=== PATIENT | male | born 1985 | race Caucasian/White ===

== ENCOUNTER 2019-03-30 15:41 | Observation (INO) | payer OTHER, SELFPAY ==
[2019-03-30 15:42] VITALS: BP 169/100; PULSE 73; RESP 19; RESP 20; TEMP 36.7; O2SAT 95; BMI 36.3
--- NOTE | 2019-03-30 15:53 | RAD_ITS ---
STUDY: X-RAY CHEST REASON FOR EXAM: Male, 34 years old. Chest pain TECHNIQUE: Single AP portable view of the chest. COMPARISON: None. FINDINGS: The lungs are clear and expanded. There is no demonstrated pleural abnormality. Normal size heart. Normal mediastinum and oleg. Normal visualized pulmonary arteries. Normal visualized aortic arch and descending thoracic aorta. Normal visualized thoracic spine. Normal visualized ribs, clavicles, and shoulders. There is no demonstrated abnormality of the visualized soft tissue structures of the upper abdomen. RAD/Chest 1 View (Portable) IMPRESSION: Normal x-ray examination of the chest. Electronically Signed: Carlos Becker DO at 16:50 EDT Tel , Service support ,
--- NOTE | 2019-03-30 15:53 | EKG12_ITS ---
Test Reason : CP ADMIT Blood Pressure : / mmHG Vent. Rate : 064 BPM Atrial Rate : 064 BPM P-R Int : 160 ms QRS Dur : 098 ms QT Int : 398 ms P-R-T Axes : 029 -12 011 degrees QTc Int : 410 ms Normal sinus rhythm with sinus arrhythmia Poor R wave progression Confirmed by PRETTY IBARRA, ([id number]), sports editor JOCELYNE KRISHNA ([id number]) on 04/04/2019 7:01:36 AM Referred By: Mar Matthews Confirmed By:PAUL OLSEN MD
[2019-03-30] MEDS: Aspirin 81 MG TAB.CHEW 324 MG PO (15:59)
[2019-03-30] MEDS: Nitroglycerin SL (ED/IMG/CATH) 0.4 MG TABLET SUBLINGUAL ×3 (16:00→16:13)
[2019-03-30 16:04] LABS: Absolute Lymphocyte Count 2.44 X10^3/ul (0.83-4.51); Absolute Neutrophil Count 3.7 X10^3/uL (2.0-7.7); Basophil# 0.08 X10^3/uL; Basophil% 1.1 % (0-1); Eosinophil# 0.21 X10^3/uL; Hematocrit 44.7 % (40-54); Hemoglobin 16.3 g/dl (13.0-16.5); Lymphocyte # 2.44 X10^3/ul (4.0); Lymphocyte % 34.8 % (19-41); Mean Corp Hgb Conc 36.5 g/gl (32-36); Mean Corpuscular Hgb 32.2 pg (27.0-32.0); Mean Corpuscular Volume 88.3 fL (80-94); Mean Platelet Vol. 10.9 fl (6.2-12.0); Monocyte# 0.55 X10^3/uL; Monocyte% 7.8 % (0-10); Neutrophil # 3.73 X10^3/uL (2.7-7.7); Neutrophil % 53.2 % (47-70); Platelet Count 215 K/mm3 (150-450); RBC Distribution Width CV 12.6 % (11.6-14.6); RBC Distribution Width SD 40.3 fl (35.1-43.9); Red Blood Count 5.06 M/mm3 (4.6-6.2)
[2019-03-30 16:09] LABS: POSITIVE COUNT NO; POSITIVE DIFFERENTIAL NO; POSITIVE MORPHOLOGY NO
--- NOTE | 2019-03-30 16:11 | ED.VISSUMM ---
- ER Visit Summary Date of Service: 03/30/19 Chief Complaint: Chest pain History of Present Illness: The patient is a 34 M presenting with chest pain. Patient states this started yesterday. He states the pain has been intermittent. He feels a midsternal pressure that radiates to his left arm. He has associated shortness of breath. He denies nausea, vomiting, diaphoresis, lightheadedness. He has a history of hypertension. He is no longer taking blood pressure medications. He has a family history of early cardiac disease with his mother having an DE in her 40s. Denies PE/DVT risk factors. He is not a smoker. Physical Examination: Vitals are stable. Blood pressure 169/100. Patient is afebrile. Alert no acute distress. HEENT exam is unremarkable. Neck is supple. Lungs are clear and equal bilaterally. Heart is regular rate and rhythm. Abdomen is soft nontender nondistended. Extremities are unremarkable. Skin is warm and dry. No focal neurologic deficit. Remainder of exam is unremarkable. Emergency Department Course and Treatment: Patient was given aspirin on arrival. EKG is sinus rate of 69 with no acute ischemic changes. CBC, chemistries unremarkable other than glucose 228. Troponin is negative. Chest x-ray shows no acute process. He was given nitro sublingual. He has continued pain was given morphine. He has improvement of his pain but continues to have intermittent chest pressure. Discussed with the hospitalist for observation. Disposition: Observation Impression: Chest pain This note was generated with [employer] dictation software. It may contain incorrect words, spelling, and punctuation that were not noted in review of the chart prior to signing ED Disposition - Plan for ED Patient: Referrals: Jay De La Rosa [Primary Care Provider] -
[2019-03-30 16:17] LABS: Anion Gap 8 (5-15); BUN 12 mg/dL (7-18); BUN/Creat Ratio 11.3 RATIO (10-20); Calcium,Total 8.6 mg/dL (8.5-10.1); Chloride 102 mmol/L (98-107); Creatinine, Serum 1.06 mg/dL (0.70-1.30); EST Glomerular Filtration Rate 84 mL/min (>60); Est Glom Filt Rate - Afr Amer 102 mL/min (>60); Estimated Creatinine Clearance 99.48 ml/min; Glucose 228 mg/dL (74-106); Sodium Level 136 mmol/L (136-145)
[2019-03-30] MEDS: Ondansetron 4 MG/2 ML Vial IV (16:33)
[2019-03-30] MEDS: Morphine 4 MG/ML Syringe IV (16:33)
[2019-03-30 17:13] VITALS: BP 131/73; PULSE 75; RESP 20; O2SAT 95
--- NOTE | 2019-03-30 17:18 | PCM.HP.STD ---
Problem List (1) Chest pain Status: Acute Qualifiers: Chest pain type: unspecified Qualified Code(s): R07.9 - Chest pain, unspecified History of Present Illness Date of Admission: 03/30/19 Chief Complaint: Chest pain - 2 days The patient is a 34 year old M with no significant past medical history who comes in with chest pain ongoing for 2 days. Patient describes chest pain as substernal, squeezing, radiates to the shoulder and to the left hand, lasts for a few minutes and goes away. Been coming and going periodically. Nothing makes it worse, nothing makes it better. Denies any nausea or vomiting or diaphoresis with it. Denies any fever or chills. There is a family history of heart disease with an UT and his mother in his 50s. Denies any smoking or illicit drug use. Vitals in the ED showed temperature of 98.0 F, heart rate 75, blood pressure 131/73, respiratory rate is 20, SPO2 is 95% on room air. Admitting blood work is unremarkable except for elevated glucose of 228. Chest x-ray was unremarkable. Past Medical History Allergies No Known Allergies Allergy (Verified 03/30/19 15:42) Home Medications: Ambulatory Orders Medication Instructions Recorded NK 03/30/19 Surgical History: - - Status post history of leg surgery for fracture as an infant Psychiatric History: No pertinent psych hx Lives: Spouse/ Significant Other Smoking Status: Never smoker Tobacco Use: Non-smoker Alcohol: None Drugs: None - *Family History Maternal History Items: Heart Disease - UT in 50s Paternal History Items: No pertinent history Review of Systems Constitutional: Denies: Anorexia, Chills, Fever, Weakness, Weight Change Eyes: Denies: Blurred vision, Cataracts, Conjunctivae Inflammation, Pain, Redness, Vision Change HEENT: Denies: Difficulty Hearing, Difficulty Swallowing, Head Aches, Hearing Changes, Sinus Congestion, Sinus Drainage, Sore Throat Cardiovascular: Reports: Chest Pain, Chest Pressure. Denies: Light Headedness, Orthopnea, Palpitations, Paroxysmal Noc. Dyspnea Respiratory: Denies: Cough, Hemoptysis, Shortness of breath at rest, Shortness of breath upon exertion, Sputum production Gastrointestinal: Denies: Abdominal Pain, Constipation, Diarrhea, Nausea, Vomiting Genitourinary: Denies: Dysuria, Frequency, Incontinence Musculoskeletal: Denies: Joint Pain, Joint stiffness, Joint swelling, Joint Tenderness Skin: Denies: Rash, Wounds Neurological: Denies: Numbness, Tingling, Focal weakness Psychiatric: Denies: Anxiety, Depression, Homicidal Ideations, Suicidal Ideations Endocrine: Denies: Change in Body Habitus Hematologic/ Lymphatic: Denies: Easy Bruising, Easy Bleeding VTE Information - Inpt Only VTE Present on Admission: No VTE Pharm Prophylaxis ordered?: Yes Patient Problems: Active and Suspected Problems Chest pain (Acute) - Physical Exam General: Alert, Oriented x3, Cooperative, No apparent distress, - - obese HEENT: Atraumatic, PERRLA, EOMI, Normocephalic Oral: Moist Mucosa Neck: Supple, No JVD, Negative Carotid Bruits Lungs: Clear to auscultation, Normal air movement Cardiovascular: Regular rate, Regular Rhythm, Normal S1, Normal S2, No murmurs Abdomen: Bowel Sounds Present, Soft, Non Tender Extremities: No edema Skin: No rashes Musculoskeletal: No Tenderness to Palpation of Joints or Extremities Neurological: Cranial nerves II-XII grossly intact Psych/Mental Status: Normal Affect, Appropriate Vital Signs Temp Pulse Resp BP Pulse Ox 98.0 F 75 20 H 131/73 H 95 03/30/19 15:42 03/30/19 17:13 03/30/19 17:13 03/30/19 17:13 03/30/19 17:13 Oxygen Delivery Method Room Air Weight: 115 kg Body Mass Index (BMI) 36.3 Laboratory Tests Past 24 Hrs 03/30/19 03/30/19 15:50 15:50 WBC 7.0 RBC 5.06 Hgb 16.3 Hct 44.7 MCV 88.3 MCH 32.2 H MCHC 36.5 H RDW 12.6 RDW Differential 40.3 Plt Count 215 MPV 10.9 Immature Gran % (Auto) 0.100 Neut % (Auto) 53.2 Lymph % (Auto) 34.8 [place] % (Auto) 7.8 Eos % (Auto) 3.0 Baso % (Auto) 1.1 H Absolute Neuts (auto) 3.7 Absolute Lymphs (auto) 2.44 Total Counted Not Reportable Sodium 136 Potassium 4.0 Chloride 102 Carbon Dioxide 26.0 Anion Gap 8 BUN 12 Creatinine 1.06 Estim Creat Clear Calc 99.48 Est GFR (MDRD) Af Amer 102 Est GFR (MDRD) Non-Af 84 BUN/Creatinine Ratio 11.3 Glucose 228 H Calcium 8.6 Troponin I < 0.015 Assessment/Plan All Active Problems Chest pain (Acute) 34 year old M with no significant past medical history who comes in with chest pain ongoing for 2 days. Patient describes chest pain as substernal, squeezing, radiates to the shoulder and to the left hand, lasts for a few minutes and goes away. 1. Chest pain, atypical, in a patient with no personal cardiac disease, HEART score of 2, positive FHx of heart disease in mother at 50yrs Plan: Admit to PCU, monitor on telemetry, trend troponins, exercise stress test in am, aspirin 81mg po daily, nitro prn 2. Elevated Blood sugar on BMP, no h/o DM, will check HgbA1c, lipid profile 3. DVT PPx- early am Code Visit OBSV E&M: [id number] Initial observation care L3
[2019-03-30 18:02] VITALS: BMI 35.2
[2019-03-30 18:05] VITALS: BP 145/77; PULSE 78; RESP 16; TEMP 37; O2SAT 93
[2019-03-30 18:14] VITALS: PULSE 77
--- NOTE | 2019-03-30 18:46 | EKG12_ITS ---
Test Reason : CP Blood Pressure : / mmHG Vent. Rate : 069 BPM Atrial Rate : 069 BPM P-R Int : 154 ms QRS Dur : 094 ms QT Int : 390 ms P-R-T Axes : 026 -16 013 degrees QTc Int : 417 ms Normal sinus rhythm Normal ECG Confirmed by GUNNAR HARRINGTON MD ([id number]), editorial specialist JOCELYNE KRISHNA ([id number]) on 03/31/2019 11:49:29 AM Referred By: Mar Matthews Confirmed By:GUNNAR HARRINGTON MD
[2019-03-30 19:02] VITALS: PULSE 76
[2019-03-30 21:11] LABS: Hemoglobin A1c 8.2 % (4.2-6.3)
[2019-03-30 23:01] VITALS: PULSE 71
[2019-03-31] VITALS (8 sets, daily range): BP systolic 128–145; BP diastolic 73–93; PULSE 58–87; RESP 16; TEMP 36.1–36.8; O2SAT 93–95
[2019-03-31] MEDS: Aspirin 81 MG TAB.CHEW PO (05:41)
--- NOTE | 2019-03-31 05:55 | EKG12_ITS ---
Test Reason : AM EKG Blood Pressure : / mmHG Vent. Rate : 061 BPM Atrial Rate : 061 BPM P-R Int : 162 ms QRS Dur : 100 ms QT Int : 416 ms P-R-T Axes : 008 -03 015 degrees QTc Int : 418 ms Normal sinus rhythm Normal ECG Confirmed by PRETTY IBARRA, ([id number]), editorial manager JOCELYNE KRISHNA ([id number]) on 04/04/2019 7:03:22 AM Referred By: Mar Matthews Confirmed By:PAUL OLSEN MD
[2019-03-31 06:10] LABS: Partial Thromboplast Time 27.5 Seconds (24.1-36.2)
[2019-03-31 06:11] LABS: Absolute Lymphocyte Count 1.94 X10^3/ul (0.83-4.51); Absolute Neutrophil Count 2.8 X10^3/uL (2.0-7.7); Basophil# 0.06 X10^3/uL; Basophil% 1.1 % (0-1); Eosinophil# 0.23 X10^3/uL; Eosinophils% 4.1 % (0-5); Hematocrit 43.4 % (40-54); Hemoglobin 15.4 g/dl (13.0-16.5); Lymphocyte # 1.94 X10^3/ul (4.0); Lymphocyte % 34.7 % (19-41); Mean Corp Hgb Conc 35.5 g/gl (32-36); Mean Corpuscular Hgb 31.6 pg (27.0-32.0); Mean Corpuscular Volume 89.1 fL (80-94); Mean Platelet Vol. 11.1 fl (6.2-12.0); Monocyte# 0.51 X10^3/uL; Monocyte% 9.1 % (0-10); Neutrophil # 2.84 X10^3/uL (2.7-7.7); Neutrophil % 50.8 % (47-70); Platelet Count 196 K/mm3 (150-450); RBC Distribution Width CV 12.9 % (11.6-14.6); RBC Distribution Width SD 41.2 fl (35.1-43.9); Red Blood Count 4.87 M/mm3 (4.6-6.2); White Blood Count 5.6 K/mm3 (4.4-11.0)
[2019-03-31 06:16] LABS: Anion Gap 6 (5-15); BUN 13 mg/dL (7-18); BUN/Creat Ratio 12.7 RATIO (10-20); Chloride 102 mmol/L (98-107); Cholesterol 168 mg/dL (200); Creatinine, Serum 1.02 mg/dL (0.70-1.30); EST Glomerular Filtration Rate 88 mL/min (>60); Est Glom Filt Rate - Afr Amer 106 mL/min (>60); Estimated Creatinine Clearance 103.38 ml/min; Glucose 232 mg/dL (74-106); High Density Lipoprotein 30 mg/dL; Potassium 4.3 mmol/L (3.5-5.1); Sodium Level 137 mmol/L (136-145); Triglycerides 533 mg/dL
[2019-03-31 06:51] LABS: Prothrombin Time (Protime)PT. 13.3 SECONDS (11.7-14.9)
[2019-03-31 06:56] LABS: POSITIVE COUNT NO; POSITIVE DIFFERENTIAL NO; POSITIVE MORPHOLOGY NO
[2019-03-31] MEDS: Insulin Lispro 100 UNIT/ML INSULN.PEN SC (12:14)
[2019-03-31 12:16] LABS: Bedside Glucose 228 mg/dL (70-110)
--- NOTE | 2019-03-31 13:31 | STRESSREP_ITS ---
Stress Test Report Exercise myocardial perfusion stress test. 34-year-old male with a history of chest pain. Stress protocol: Resting EKG demonstrates normal sinus rhythm with a rate of 65 bpm normal intervals are noted resting blood pressures 122/86 mmHg. The patient exercised according to regular Hudson protocol for total duration of 10 minutes and 30 s econds the maximum heart rate attained was 171 bpm which was 92% of maximum predicted heart rate the maximum workload was 12.5 metabolic equivalents. At rest there were no ST or T wave changes noted suggest ischemia peak exercise upsloping ST changes were noted suggest ischemia. No clinical angina was noted no arrhythmias were noted. Myocardial perfusion protocol. 14.3 mCi of technetium 99m sestamibi was injected at rest. The patient exercised for 10-1/2 minutes and at peak exercise 43.9 mCi of technetium 99m sestamibi was injected stress images were obtained stress and rest images were reconstructed in comparing the short axis vertical long horizontal long axis. Gated images were also obtained per Perfusion SPECT analysis: Review of the stress images demonstrate normal uptake of tracer noted in all areas of myocardium. The resting images similarly demonstrate normal perfusion in all areas of the myocardium. No areas of reversibility are noted suggest ischemia. Gated SPECT analysis: The gated ejection fraction is noted to be 59%. Conclusion: Normal exercise myocardial perfusion stress test at a high workload. Preserved ejection fraction.
--- NOTE | 2019-03-31 14:38 | DCINST_ITS ---
- Discharge Diagnoses Current Active Problems: Current Active and Chronic Problems Chest pain (Acute) You will use the following diet at home:: Calorie/Carbohydrate Controlled (specify 1200, 1400, etc) - 1800 calories per day. Avoid sugary drinks such as soda and fruit juices, sweetened coffee drinks, etc. Avoid heavy carb meals such as potatos, pasta, rice, etc. Follow mill operator guidelines., Cardiac Your food should be the consistency of: Regular Your liquids should be the consistency of: Regular/Thin Discharge Activity: Return to Normal Activity Additional Instructions: Please check your blood sugar every morning after waking up, before eating. Record the findings in a log with date and time noted. Present these to your PCP at follow up. Allergies/Adverse Reactions: Allergies No Known Allergies Allergy (Verified 03/30/19 15:42) Medications to take at Discharge Atorvastatin Calcium 20 mg PO DAILY #30 tab 03/31/19 metFORMIN HCl [Glucophage] 500 mg PO BIDCM #60 tab 03/31/19 The following prescriptions were given: Atorvastatin Calcium 20 mg PO DAILY #30 tab metFORMIN HCl [Glucophage] 500 mg PO BIDCM #60 tab Orders to be completed after discharge: Glucometer Location: None Selected Primary Care Physician: Jay De La Rosa [Primary Care Provider] - Please follow up with your Primary Care Physician in: 1 week Test Results: Test results from this visit will be discussed in further detail at your follow- up appointment, if applicable. Proposed Discharge Date: 03/31/19
--- NOTE | 2019-03-31 14:39 | PCM.DC.SUM ---
Discharge Date and Diagnosis - Problem List Patient Problems: Active and Suspected Problems Chest pain (Acute) Date of Admission: 03/30/19 Date of Discharge: 03/31/19 - Primary Discharge Diagnosis Active and Suspected Problems Chest pain (Acute) - musculoskeletal DMt2 newly diagnosed HLD, marked hypertriglyceridemia obesity Hospital Course and Treatment Imaging Results: 03/31/19 05:55 Nuclear Stress Test - Treadmil [NM] AM (NON MEDS) Conclusion: Normal exercise myocardial perfusion stress test at a high workload. Preserved ejection fraction. RAD/Chest 1 View (Portable) IMPRESSION: Normal x-ray examination of the chest. Operations: None Procedures: Stress test Summary of Care Provided: Hospital Course: The patient is a 34 year old M with pmhx of obesity who presented to the ER with c/o chest pain for 2 days. This was a substernal squeezing pain with radiation to the left shoulder, left finger tingling that would come and go for a few minutes numerous times. He could not identify any particular activity that made it better or worse. He was very concerned that his mother had an NH when she was in her 40's. He does not smoke. He is however obese and his blood sugar was severely elevated - a follow up HgbA1C of 8.0 confirmed a diagnosis of diabetes type 2. EKG was negative, CXR negative, troponin negative. He was admitted to the PCU on tele. No events on tele. Trop negative x3. AM FLP was obtained showing markedly elevated triglycerides. Stress test was negative for ischemia. He was started on metformin and atorvastatin, as well as written for a glucometer with test strips and lancets, alcohol wipes. He was provided with a spring repairer helper hand eval and diabetic education. He was discharged home in stable condition. He will need follow up with his PCP ideally in the next week. This patient was seen by Miguel Leone PA-C under the supervision of Dr. Nassar. [] Patient Problems: Active and Suspected Problems Chest pain (Acute) - Physical Exam General: Alert, Oriented x3, Cooperative HEENT: Atraumatic, PERRLA, EOMI, Normocephalic Neck: Supple, No JVD, Negative Carotid Bruits Lungs: Clear to auscultation, Normal air movement Cardiovascular: Regular rate, No murmurs Abdomen: Bowel Sounds Present, Soft, Non Tender, Obese Extremities: No edema, Capillary Refill Less than 3 Seconds Skin: No rashes, No breakdown Musculoskeletal: No Tenderness to Palpation of Joints or Extremities Neurological: Cranial nerves II-XII grossly intact Psych/Mental Status: Normal Affect, Appropriate, Alert and oriented to time, place, person, mood and affect Vital Signs Temp Pulse Resp BP Pulse Ox 98 F 81 16 135/86 H 94 03/31/19 09:30 03/31/19 11:04 03/31/19 09:30 03/31/19 09:30 03/31/19 09:30 Oxygen Delivery Method Room Air Weight: 251 lb 5.231 oz Body Mass Index (BMI) 35.2 Intake and Output for Last 24 Hours 03/29/19 03/30/19 03/31/19 23:59 23:59 23:59 Intake Total 360 / 360 100 / 100 Balance 360 / 360 100 / 100 Laboratory Tests Past 24 Hrs 03/30/19 03/30/19 03/30/19 15:50 15:50 15:50 WBC 7.0 RBC 5.06 Hgb 16.3 Hct 44.7 MCV 88.3 MCH 32.2 H MCHC 36.5 H RDW 12.6 RDW Differential 40.3 Plt Count 215 MPV 10.9 Immature Gran % (Auto) 0.100 Neut % (Auto) 53.2 Lymph % (Auto) 34.8 [place] % (Auto) 7.8 Eos % (Auto) 3.0 Baso % (Auto) 1.1 H Absolute Neuts (auto) 3.7 Absolute Lymphs (auto) 2.44 Total Counted Not Reportable PT INR APTT Sodium 136 Potassium 4.0 Chloride 102 Carbon Dioxide 26.0 Anion Gap 8 BUN 12 Creatinine 1.06 Estim Creat Clear Calc 99.48 Est GFR (MDRD) Af Amer 102 Est GFR (MDRD) Non-Af 84 BUN/Creatinine Ratio 11.3 Glucose 228 H Hemoglobin A1c 8.2 H Calcium 8.6 Troponin I < 0.015 Triglycerides Cholesterol LDL Cholesterol VLDL Cholesterol HDL Cholesterol 03/30/19 03/30/19 03/31/19 18:43 21:11 05:30 WBC RBC Hgb Hct MCV MCH MCHC RDW RDW Differential Plt Count MPV Immature Gran % (Auto) Neut % (Auto) Lymph % (Auto) [place] % (Auto) Eos % (Auto) Baso % (Auto) Absolute Neuts (auto) Absolute Lymphs (auto) Total Counted PT INR APTT Sodium 137 Potassium 4.3 Chloride 102 Carbon Dioxide 29.0 Anion Gap 6 BUN 13 Creatinine 1.02 Estim Creat Clear Calc 103.38 Est GFR (MDRD) Af Amer 106 Est GFR (MDRD) Non-Af 88 BUN/Creatinine Ratio 12.7 Glucose 232 H Hemoglobin A1c Calcium 8.0 L Troponin I < 0.015 < 0.015 Triglycerides 533 H Cholesterol 168 LDL Cholesterol TNP VLDL Cholesterol TNP HDL Cholesterol 30 L 03/31/19 03/31/19 05:30 05:30 WBC 5.6 RBC 4.87 Hgb 15.4 Hct 43.4 MCV 89.1 MCH 31.6 MCHC 35.5 RDW 12.9 RDW Differential 41.2 Plt Count 196 MPV 11.1 Immature Gran % (Auto) 0.200 Neut % (Auto) 50.8 Lymph % (Auto) 34.7 [place] % (Auto) 9.1 Eos % (Auto) 4.1 Baso % (Auto) 1.1 H Absolute Neuts (auto) 2.8 Absolute Lymphs (auto) 1.94 Total Counted Not Reportable PT 13.3 INR 1.0 APTT 27.5 Sodium Potassium Chloride Carbon Dioxide Anion Gap BUN Creatinine Estim Creat Clear Calc Est GFR (MDRD) Af Amer Est GFR (MDRD) Non-Af BUN/Creatinine Ratio Glucose Hemoglobin A1c Calcium Troponin I Triglycerides Cholesterol LDL Cholesterol VLDL Cholesterol HDL Cholesterol POC Glucose 03/31/19 12:10 POC Glucose 228 H Discharge Diet: Low fat/ Low Cholesterol, 1800 Calorie Control Diet Discharge Activity: Return to Normal Activity Home Medications: Medications to take at Discharge Atorvastatin Calcium 20 mg PO DAILY #30 tab 03/31/19 metFORMIN HCl [Glucophage] 500 mg PO BIDCM #60 tab 03/31/19 Following Prescrptions Were Given to Patient: Atorvastatin Calcium 20 mg PO DAILY #30 tab metFORMIN HCl [Glucophage] 500 mg PO BIDCM #60 tab Other Amb Orders: Glucometer Location: None Selected Primary Care Physician: Jay De La Rosa [Primary Care Provider] - Please follow up with your Primary Care Physician in: 1 week Disposition: Home Minutes spent on discharge:: 35 Patient Condition:: Stable Medical Necessity - Tobacco Use Smoking Status: Never smoker Tobacco Use: Non-smoker Meaningful Use Info Meaningful Use Diagnoses (Choose all that apply): None applicable
== END 2019-03-31 14:37 | disposition home or self-care (01) ==
LOC: ED 16:13 → PCU 17:31
PROVIDERS: Admitting Provider Internal Medicine; Emergency Provider Emergency Medicine; Family Provider Family Medicine; Referring Provider Internal Medicine; Visit Provider Internal Medicine
DX: R07.89 Other chest pain (principal); R06.02 Shortness of breath; I10 Essential (primary) hypertension; Z82.49 Family history of ischemic heart disease and other diseases of the circulatory system; R73.9 Hyperglycemia, unspecified; E66.01 Morbid (severe) obesity due to excess calories; Z68.36 Body mass index [BMI] 36.0-36.9, adult; Z71.3 Dietary counseling and surveillance; E78.5 Hyperlipidemia, unspecified
CPT/HCPCS: 36415; 71045; 78452; 80048; 80061; 82962; 83036; 84484; 85025; 85610; 85730; 93005; 93017; 96374; 96375; 97802; 99218; 99285; A9500; A4216; G0378; J2405

== ENCOUNTER 2023-05-10 16:32 | Emergency (ER) | payer OTHER, SELFPAY ==
[2023-05-10 16:33] VITALS: BP 166/89; PULSE 112; RESP 18; TEMP 38.8; O2SAT 97; BMI 33.1
--- NOTE | 2023-05-10 16:57 | EKG12_ITS ---
Test Reason : GENERAL Blood Pressure : / mmHG Vent. Rate : 116 BPM Atrial Rate : 116 BPM P-R Int : 154 ms QRS Dur : 090 ms QT Int : 310 ms P-R-T Axes : 032 -19 031 degrees QTc Int : 430 ms Sinus tachycardia Otherwise normal ECG When compared with ECG of 31-MAR-2019 05:19, Vent. rate has increased BY 55 BPM Confirmed by LEN IBARRA, GUNNAR ([id number]), city editor KIM TENORIO ([id number]) on 05/22/2023 7:34:30 AM Referred By: Confirmed By:GUNNAR HARRINGTON MD
--- NOTE | 2023-05-10 17:13 | RAD_ITS ---
INDICATION: Fever EXAMINATION/TECHNIQUE: X-RAY - XR Chest 1 View COMPARISON: 03/30/2019. FINDINGS: LINES/DEVICES: None. LUNGS: No consolidation, edema or effusion. No pneumothorax. MEDIASTINUM AND CARDIOVASCULAR STRUCTURES: Cardiac silhouette not enlarged. Central airways and mediastinal contour are unremarkable. BONES AND SOFT TISSUES: Unremarkable. RAD/Chest 1 View (Portable) IMPRESSION: No radiographic evidence of acute cardiopulmonary disease. Electronically Signed: Anabela Nix MD at 17:27 EDT Reading Location ID and State: [id number] / Tel , Service support ,
--- NOTE | 2023-05-10 17:13 | EDS_ITS ---
HPI History of Present Illness Chief Complaint: General Illness Informant: patient Onset/Context/Timing Onset: Days (4) Context: Gradual Onset Timing: Continuous Quality: Weakness Location: Generalized Worsened by: Nothing Relieved by: Nothing Narrative Narrative: Patient presents with generalized weakness, nausea, fever, and body aches that have been getting worse over the last 4 days. Patient states he feels weak all over. Patient states he feels like he is dehydrated. Patient states his fever was up to 101 at home. Patient states nothing makes his symptoms worse and nothing makes them better. Patient admits to some nausea but denies any vomiting. Patient admits to a mild cough but denies any sputum production. Patient admits to some dysuria but denies any hematuria or frequency. [facility] Medical History (Updated 05/10/23 @ 19:[address] Demetris Peña DO) Diabetes mellitus Medical History no medical history Home Medications atorvastatin 20 mg tablet 20 mg PO DAILY #30 tabs 03/31/19 [Rx Last Taken Unknown] metformin 500 mg tablet 500 mg PO BIDCM #60 tabs 03/31/19 [Rx Last Taken Unknown] ondansetron 4 mg disintegrating tablet 4 mg PO Q8H PRN PRN Nausea #10 tabs 05/10/23 [Rx Last Taken Unknown] Allergy/AdvReac Type Severity Reaction Status Date / Time No Known Allergies Allergy Verified 05/10/23 16:33 Surgical History no surgical history no surgical history Social History Smoking Status: Never smoker ROS ROS ED Constitutional Constitutional ED: Reports fever(s); Denies chills Eyes Eyes: Denies blurry vision or change in vision ENT ENT ED: Denies rhinorrhea or sore throat Cardiovascular Cardiovascular: Denies chest pain or palpitations Respiratory/Chest Respiratory/Chest: Reports cough; Denies dyspnea Gastrointestinal Gastrointestinal: Reports nausea; Denies vomiting Genitourinary Genitourinary ED: Reports dysuria; Denies hematuria Musculoskeletal Musculoskeletal: Reports myalgias; Denies back pain or neck pain Integumentary Denies abscess or rash Neurologic Neurologic: Denies headache(s) or weakness Allergic/Immunologic Allergic/Immunologic ED: Denies mouth swelling or urticaria EXAM Physical Exam Const Vital Signs: 05/10/23 16:33 05/10/23 16:38 05/10/23 18:52 Temperature 101.9 F H 98.6 F Temperature Source Temporal Oral Pulse Rate 112 H Respiratory Rate 18 Respiratory Effort Normal Non-Labored Blood Pressure 166/89 H Blood Pressure Mean 114 Pulse Ox 97 Positive well nourished and well developed General Appearance ED: well developed and NAD HEENT Reports moist mucous membranes Neck supple and no JVD Resp normal respiratory effort and clear to auscultation bilaterally Cardio regular rate and regular rhythm GI normal to inspection, nondistended, normoactive bowel sounds Palpation: soft and tender epigastric, LLQ, RLQ, LUQ, RUQ, periumbilical and suprapubic; Negative for guarding or rebound tenderness present Neuro oriented x3, CN's II-XII intact bilaterally and no sensory deficits noted Psych mental status grossly normal MDM MDM MDM Narrative Medical decision making narrative: Differential diagnosis includes dehydration, viral illness, electrolyte abnormality, acute kidney injury, DKA, pneumonia, urinary tract infection, and viral upper respiratory infection. Chest x-ray will be obtained to assess for pneumonia. COVID-19 rapid antigen will be obtained to assess for COVID-19 infection. Influenza A and influenza B antigens will be obtained to assess for influenza infection. EKG will be obtained to assess for cardiac dysrhythmia and cardiac ischemia. CBC will be obtained to assess for leukocytosis and anemia. Comprehensive metabolic profile will be obtained to assess for hepatic function, renal function, and electrolyte abnormality. Lipase will be obtained to assess for pancreatitis. Lactate will be obtained to assess for sepsis and lactic acidosis. Serum acetone obtained to assess for diabetic ketoacidosis. Urinalysis will be obtained to assess for urinary tract infection and ketonuria. High-sensitivity troponin will be obtained to assess for cardiac ischemia. Lab Data Attestation: I reviewed the patient's lab results. Lab results narrative: CBC was reviewed. There is a mild leukocytosis of 11.8. The remainder is within normal limits. Comprehensive metabolic profile was reviewed. Sodium was slightly low at 132 and potassium was 3.1. Chloride was slightly low at 96. Glucose was elevated at 329. Total bilirubin was slightly elevated at 1.6. The remainder is within normal limits. Lipase was reviewed and was normal at 14. Urinalysis was reviewed. Urine ketones were 150. There is no evidence of urinary tract infection or hematuria. Venous blood gas was reviewed. pH was 7.51, PCO2 was 35.5. PO2 was 34.4. Bicarb was 28.7. COVID-19 rapid antigen was reviewed and was negative. Influenza A and influenza B antigens were reviewed and were negative. Labs: Laboratory Results - last 24 hr 05/10/23 05/10/23 16:46 18:25 WBC 11.8 H RBC 4.88 Hgb 15.1 Hct 41.3 MCV 84.6 MCH 30.9 MCHC 36.6 H RDW Std Deviation 35.6 RDW Coeff of Ree 11.7 Plt Count 158 MPV 11.4 Immature Gran % (Auto) 0.600 Neut % (Auto) 85.0 H Lymph % (Auto) 3.7 L [place] % (Auto) 10.2 H Eos % (Auto) 0.0 Baso % (Auto) 0.5 Absolute Neuts (auto) 10.0 H Absolute Lymphs (auto) 0.43 L Nucleated RBC % 0 Differential Comment SEE COMMENT Platelet Estimate ADEQUATE RBC Morphology NORM C+C Sodium 132 L Potassium 3.1 L Chloride 96 L Carbon Dioxide 27.0 Anion Gap 9 BUN 6 L Creatinine 1.07 Estim Creat Clear Calc 91.77 Est GFR (MDRD) Af Amer 98 Est GFR (MDRD) Non-Af 81 BUN/Creatinine Ratio 5.6 L Glucose 329 H Lactic Acid 1.5 Calcium 8.6 Total Bilirubin 1.60 H AST 15 ALT 27 Alkaline Phosphatase 98 Troponin I High Sens 6 Total Protein 7.7 Albumin 3.3 Globulin 4.4 H Albumin/Globulin Ratio 0.8 L Lipase 14 Urine Color Yellow Urine Clarity Clear Urine pH 6.0 Ur Specific [place] 1.010 Urine Protein 30 H Urine Glucose (UA) 1000 H Urine Ketones 150 A* Urine Occult Blood 25 H Urine Nitrite Negative Urine Bilirubin Negative Urine Urobilinogen 8 H Ur Leukocyte Esterase Negative Urine RBC 0-5 SEEN Urine WBC 0-5 SEEN Ur Squamous Epith Cells 0 SEEN Urine Bacteria RARE Urine Mucus 0 SEEN Acetone Level NEGATIVE ABG Data ABG results: ABG 05/10/23 17:18 Specimen Type ARMAND VBG pH 7.52 H VBG pO2 34 VBG HCO3 29 H VBG Total CO2 30 VBG O2 Sat (Calc) 73 H VBG Base Excess 6 H POC Mix VBG pCO2 Pt Tmp 35.5 L Radiography Chest X-Ray - ED: 1 View, Read by ED Physician, Read by Radiologist and No Acute Disease Diagnostic Testing: Clinical Impression(s) from Imaging Studies Chest X-Ray 05/10/23 17:13 IMPRESSION: No radiographic evidence of acute cardiopulmonary disease. Electronically Signed: Anabela Nix MD at 17:27 EDT , Portable 1 view chest x-ray was obtained. On my independent interpretation, lung liu are clear. There is normal cardiac silhouette. Bony thorax is normal. There is no acute process noted. Radiologist also interpreted the x- ray and agrees. EKG Initial EKG: Attestation: I personally reviewed and interpreted this EKG as follows: Interpretation: No Acute Injury Pattern and Sinus Tachycardia (116) Comments: EKG was obtained. On my independent interpretation, it showed a sinus tachycardia with a rate of 116. FL interval, QRS interval, and QTc intervals were all normal. [place] was normal. There are no acute ST or T wave changes. Prior EKG tracings: available for review Prior: Unchanged (03/31/2019) Treatment and Re-Evaluation :: Patient was given IV fluids. Patient was given a dose of Zofran here. Patient was given a dose of Tylenol for his fever. Patient was given a dose of potassium for his low potassium. Patient was advised of his findings. Patient was advised that this may be a viral illness. Patient was instructed to drink plenty of fluids. Patient was instructed to start with a liquid diet then advance to a bland diet and then to a regular diet as he feels better. Patient was instructed to follow-up with his primary care physician in 5 to 7 days. Dada ferguson understood and was agreeable with the plan. All questions were answered Discharge Plan Triage Chief Complaint: General Illness ED Provider: Demetris Peña Dx/Rx/DC Orders Clinical Impression: Diabetes mellitus, Viral illness Instructions: ED Viral Syndrome (Adult) Prescriptions: New ondansetron [ondansetron] 4 mg tablet,disintegrating 4 mg PO Q8H PRN PRN (Reason: Nausea) Qty: 10 0RF No Action metformin 500 MG tablet 500 mg PO BIDCM Qty: 60 0RF atorvastatin 20 MG tablet 20 mg PO DAILY Qty: 30 0RF Primary Care Provider: Jay De La Rosa Referrals: Jay De La Rosa [[facility]] -
[2023-05-10] MEDS: Ondansetron 4 MG/2 ML Vial IV (17:19)
[2023-05-10] MEDS: Acetaminophen 500 MG Tablet 1000 MG PO (17:20)
[2023-05-10 17:22] LABS: Blood Gas Specimen Type VEN; VBG BASE EXCESS 6 mmol/L (-1.0-3.5); VBG Bicarbonate 29 mmol/L (22-26); VBG PO2 34 mmHg (25-40); VBG SO2 73 % (50-70); VBG TCO2 30 mmol/L (23-33); VBG pCO2 35.5 mmHg (41-51); VBG pH 7.52 (7.32-7.42)
[2023-05-10] MEDS: 0.9% Normal Saline 1,000 ML 1000 ML IV ×2 (17:27→18:33)
[2023-05-10 17:29] LABS: Absolute Lymphocyte Count 0.43 X10^3/uL (0.83-4.51); Basophil# 0.06 X10^3/uL; Basophil% 0.5 % (0-1); Hematocrit 41.3 % (40-54); Hemoglobin 15.1 g/dL (13.0-16.5); Lymphocyte # 0.43 X10^3/ul (0.83-4.51); Lymphocyte % 3.7 % (19-41); Mean Corp Hgb Conc 36.6 g/dL (32-36); Mean Corpuscular Hgb 30.9 pg (27.0-32.0); Mean Corpuscular Volume 84.6 fL (80-94); Mean Platelet Vol. 11.4 fl (6.2-12.0); Monocyte% 10.2 % (0-10); NRBC Flagged by Analyzer 0 % (0-5); Neutrophil # 9.99 X10^3/uL (2.7-7.7); POSITIVE DIFFERENTIAL YES; Platelet Count 158 K/mm3 (150-450); RBC Distribution Width CV 11.7 % (11.6-14.6); RBC Distribution Width SD 35.6 fl (35.1-43.9); Red Blood Count 4.88 M/mm3 (4.6-6.2); White Blood Count 11.8 K/mm3 (4.4-11.0)
[2023-05-10 17:55] LABS: ALB/GLOB Ratio 0.8 RATIO (0.9-2.4); AST(SGOT) 15 U/L (15-37); Alanine Aminotransfer ALT/SGPT 27 U/L (16-61); Albumin, Serum 3.3 g/dL (3.2-5.0); Alkaline Phosphatase 98 U/L (45-117); Anion Gap 9 (5-15); BUN 6 mg/dL (7-18); BUN/Creat Ratio 5.6 RATIO (10-20); Calcium,Total 8.6 mg/dL (8.5-10.1); Chloride 96 mmol/L (98-107); Creatinine, Serum 1.07 mg/dL (0.70-1.30); EST Glomerular Filtration Rate 81 mL/min (>60); Est Glom Filt Rate - Afr Amer 98 mL/min (>60); Estimated Creatinine Clearance 91.77 ml/min; Globulin 4.4 g/dL (2.2-4.2); Glucose 329 mg/dL (74-106); Lipase 14 U/L (13-75); Potassium 3.1 mmol/L (3.5-5.1); Protein, Total 7.7 g/dL (6.4-8.2); Sodium Level 132 mmol/L (136-145); Troponin-I HS 6 pg/mL (3.0-78.0)
[2023-05-10 17:59] LABS: Differential Indicated SCAN CRITERIA MET
[2023-05-10 18:01] LABS: Platelet Estimate ADEQUATE (ADEQ); Red Cell Morphology NORM C+C NORMAL (NORM C&C)
[2023-05-10 18:27] LABS: Lactic Acid 1.5 mmol/L (0.4-1.9)
[2023-05-10 18:28] LABS: Mucous, Urine 0 SEEN /hpf (<or=2+); Squamous Epithelial Cells - UA 0 SEEN /hpf (0-5)
[2023-05-10 18:33] LABS: Color, Urine Yellow (Yellow); Glucose, Dipstick 1000 mg/dl (Normal); Leukocyte Esterase-Dipstick Negative /ul (Negative); Nitrite-Dipstick Negative (Negative); Occult Blood-Urine 25 /ul (Negative); Protein-Dipstick 30 mg/dl (Negative); Urine Bilirubin Dipstick Negative (Negative); Urine Clarity Clear (Clear); Urine Urobilinogen 8 mg/dl (Normal)
[2023-05-10 18:39] LABS: Ketone-Dipstick 150 mg/dl (Negative)
[2023-05-10 18:43] LABS: Bacteria RARE /hpf (None Seen); Red Blood Cells-Urine 0-5 SEEN /hpf (0-5); White Blood Cells 0-5 SEEN /hpf (0-5)
[2023-05-10] MEDS: Potassium Chloride Oral Tablet 20 MEQ 40 MEQ PO (18:43)
[2023-05-10 18:52] VITALS: TEMP 37
[2023-05-10 19:46] VITALS: BP 147/74; PULSE 89; RESP 16
== END 2023-05-10 19:51 | disposition home or self-care (01) ==
LOC: ED 18:07
PROVIDERS: Emergency Provider Emergency Medicine; PCP Family Medicine; Visit Provider Emergency Medicine
DX: B34.9 Viral infection, unspecified (principal); E11.65 Type 2 diabetes mellitus with hyperglycemia; E87.6 Hypokalemia; R30.0 Dysuria; Z79.84 Long term (current) use of oral hypoglycemic drugs
CPT/HCPCS: 71045; 80053; 81001; 82009; 82803; 83605; 83690; 84484; 85025; 87428; 93005; 96361; 96374; 99284; J7030; A4216; J2405

== ENCOUNTER 2025-03-22 08:52 | Emergency (ER) | payer OTHER, SELFPAY ==
[2025-03-22 08:52] VITALS: BP 158/99; PULSE 91; RESP 17; TEMP 36.7; O2SAT 99; BMI 33.6
[2025-03-22 08:54] VITALS: BP 158/98; PULSE 90; RESP 16; TEMP 36.8; O2SAT 99
--- NOTE | 2025-03-22 09:41 | ED.VIS.LOWEX ---
HPI History of Present Illness HPI Narrative: Patient presents with redness and swelling to his right fourth toe that has been getting worse since yesterday. Patient went to urgent care yesterday and was started on antibiotics. Patient states that he pulled a piece of skin off of the eponychial area of his fourth toe. Patient denies any discharge or drainage. Patient denies any fevers or chills. Patient states nothing makes his symptoms worse and nothing makes them better. Patient denies any paresthesias or weakness. Chief Complaint: Lower Extremity Injury Informant: patient Onset/Context/Timing Onset: Yesterday Context: Sudden Onset Timing: Continuous Quality of Pain: - (Pressure) Location: Right fourth toe Worsened by: Nothing Relieved by: Nothing PFSH PFS Medical History (Updated 03/22/25 @ 12:[address] Demetris Peña DO) Pancreatic insufficiency Diabetes mellitus Home Medications ?Medication ?Instructions ?Recorded ?Last Taken ?Type metformin 500 mg tablet 500 mg PO BIDCM #60 tabs 03/31/19 03/21/25 Rx doxycycline monohydrate 100 mg 100 mg PO BID 03/22/25 03/22/25 History tablet mupirocin 2 % topical ointment 1 applic topical TID 03/22/25 03/22/25 History Allergy/AdvReac Type Severity Reaction Status Date / Time No Known Allergies Allergy Verified 03/22/25 08:52 Surgical History no surgical history no surgical history Social History Smoking Status: Never smoker ROS ROS ED Constitutional Constitutional ED: Denies chills or fever(s) Eyes Eyes: Denies blurry vision or change in vision ENT ENT ED: Denies rhinorrhea or sore throat Cardiovascular Cardiovascular: Denies chest pain or palpitations Respiratory/Chest Respiratory/Chest: Denies cough or dyspnea Gastrointestinal Gastrointestinal: Reports nausea; Denies vomiting Genitourinary Genitourinary ED: Denies dysuria or hematuria Musculoskeletal Musculoskeletal: Denies back pain or neck pain Integumentary Reports abscess; Denies rash Neurologic Neurologic: Denies headache(s) or weakness Allergic/Immunologic Allergic/Immunologic ED: Denies mouth swelling or urticaria EXAM Physical Exam Const Vital Signs: 03/22/25 08:52 03/22/25 08:54 03/22/25 10:32 Temperature 98.1 F 98.2 F Temperature Source Oral Oral Pulse Rate 91 90 77 Respiratory Rate 17 16 20 H Blood Pressure 158/99 H 158/98 H 138/96 H Blood Pressure Mean 118 118 110 Pulse Ox 99 99 95 Oxygen Delivery Method Room Air Room Air Room Air 03/22/25 11:42 Temperature 97.8 F Temperature Source Temporal Pulse Rate 77 Respiratory Rate 20 H Blood Pressure 138/96 H Blood Pressure Mean 110 Pulse Ox 95 Oxygen Delivery Method Positive well nourished and well developed General Appearance ED: well developed and NAD HEENT Reports moist mucous membranes Neck full ROM and supple Extremity Extremity Narrative: There is edema, erythema and tenderness over the right fourth toe. There is a area of abscess formation over the distal phalanx. There is mild fluctuance. There is no active discharge or drainage. Sensation was intact to light touch in all digits. Capillary refills less than 2 seconds in all digits. Pedal pulses are equal bilaterally. There is some erythematous streaking going proximally over the dorsum of the right foot. There are no deformities noted. Neuro oriented x3, CN's II-XII intact bilaterally, moves all extremities and no sensory deficits noted Sensorium / Orientation: alert Motor Exam: strength 5/5 throughout Psych mental status grossly normal MDM MDM MDM Narrative Medical decision making narrative: Differential diagnosis includes osteomyelitis, diabetic foot wound, paronychia, cellulitis, and hyperglycemia. CBC will be obtained to assess for leukocytosis and anemia. Basic metabolic profile will be obtained to assess for hyperglycemia, electrolyte abnormality, and renal function. Blood cultures will be obtained to assess for sepsis. X-rays of the right foot will be obtained to assess for osteomyelitis. Wound culture will be obtained to assess for wound infection. Lab Data Attestation: I reviewed the patient's lab results. Lab results narrative: CBC was reviewed and was within normal limits. PT with INR and PTT were reviewed and were within normal limits. Basic metabolic profile was reviewed and was within normal limits with the exception of an elevated glucose of 365. Serum lactate was reviewed and was normal at 1.5. Labs: Laboratory Results - last 24 hr 03/22/25 09:13 WBC 7.7 RBC 4.91 Hgb 15.1 Hct 42.2 MCV 85.9 MCH 30.8 MCHC 35.8 RDW Std Deviation 39.3 RDW Coeff of Ree 12.7 Plt Count 198 MPV 11.5 Immature Gran % (Auto) 0.300 Neut % (Auto) 71.2 H Lymph % (Auto) 16.7 L [place] % (Auto) 9.4 Eos % (Auto) 1.6 Baso % (Auto) 0.8 Absolute Neuts (auto) 5.5 Absolute Lymphs (auto) 1.28 Nucleated RBC % 0 PT 13.0 INR 1.0 APTT 27.1 Sodium 133 Potassium 4.1 Chloride 98 Carbon Dioxide 24.2 Anion Gap 11 BUN 8 Creatinine 0.85 Estim Creat Clear Calc 134.17 Est GFR (MDRD) Non-Af 111 BUN/Creatinine Ratio 10.0 Glucose 365 H Lactic Acid 1.5 Calcium 9.0 Radiography Diagnostic Testing: Clinical Impression(s) from Imaging Studies Foot X-Ray 03/22/25 10:35 IMPRESSION: No definite osseous erosions. Mild soft tissue swelling. No radiographic foreign body. Reading Location: [facility] X-rays of the right foot were obtained. There are 3 views. On my independent interpretation, there is no evidence of osteomyelitis. There is some mild soft tissue swelling. There is no acute fracture. There is no foreign body noted. Radiologist also interpreted the x-rays and agrees. Treatment and Re-Evaluation Narrative: Patient was given a dose of Unasyn here. The right fourth toe was cleaned and prepped in a sterile manner. The eponychium was incised with a tip of an 18-gauge needle. A moderate amount of purulent drainage was expressed. Wound culture was obtained. Patient tolerated the procedure well. Bacitracin dressing was applied. Patient was advised of his findings. Patient was instructed to continue doxycycline and mupirocin. Patient was instructed to keep the wound clean and dry. Patient was instructed to follow-up with his primary care physician in 5 to 7 days. Patient was also given a referral for podiatry. Patient understood and was agreeable with the plan. All questions were answered. Procedures Other Procedures Procedure(s): The right fourth toe was cleaned and prepped in a sterile manner. The tip of an 18-gauge needle was used to make a small incision in the eponychium. A moderate amount of purulent drainage was expressed. Wound culture was obtained. Patient tolerated the procedure well. Bacitracin dressing was applied. Discharge Plan Triage Chief Complaint: Lower Extremity Injury ED Provider: Demetris Peña Dx/Rx/DC Orders Clinical Impression: Cellulitis of fourth toe of right foot, Diabetes mellitus, Paronychia of fourth toe of right foot Instructions: ED Cellulitis, ED Diabetic Foot Care Prescriptions: No Action metformin 500 MG tablet 500 mg PO BIDCM Qty: 60 0RF doxycycline monohydrate 100 mg tablet 100 mg PO BID Patient Comments: PT STARTED ON 03/21/25, WILL BE DONE ON 03/29/25 mupirocin 2 % ointment 1 applic topical TID Primary Care Provider: Jay De La Rosa Referrals: Bart Jarvis DPM [Med Staff - Active Staff] - 3-5 Days Jay De La Rosa MD [Primary Care Provider] - 3-5 Days Print Language: [place] Disposition Disposition: Home, Self Care
[2025-03-22 09:56] LABS: Absolute Lymphocyte Count 1.28 X10^3/uL (0.83-4.51); Absolute Neutrophil Count 5.5 X10^3/uL (2.0-7.7); Basophil# 0.06 X10^3/uL; Basophil% 0.8 % (0-1); Eosinophil# 0.12 X10^3/uL; Eosinophils% 1.6 % (0-5); Hematocrit 42.2 % (40-54); Hemoglobin 15.1 g/dL (13.0-16.5); Lymphocyte # 1.28 X10^3/ul (0.83-4.51); Lymphocyte % 16.7 % (19-41); Mean Corp Hgb Conc 35.8 g/dL (32-36); Mean Corpuscular Hgb 30.8 pg (27.0-32.0); Mean Corpuscular Volume 85.9 fL (80-94); Mean Platelet Vol. 11.5 fl (6.2-12.0); Monocyte# 0.72 X10^3/uL; Monocyte% 9.4 % (0-10); NRBC Flagged by Analyzer 0 % (0-5); Neutrophil # 5.47 X10^3/uL (2.7-7.7); Neutrophil % 71.2 % (47-70); Platelet Count 198 K/mm3 (150-450); RBC Distribution Width CV 12.7 % (11.6-14.6); RBC Distribution Width SD 39.3 fl (35.1-43.9); Red Blood Count 4.91 M/mm3 (4.6-6.2); White Blood Count 7.7 K/mm3 (4.4-11.0)
[2025-03-22 10:05] LABS: Partial Thromboplast Time 27.1 Seconds (24.1-36.2)
[2025-03-22 10:08] LABS: Lactic Acid 1.5 mmol/L (0.0-2.0)
[2025-03-22 10:12] LABS: Anion Gap 11 (5-15); BUN 8 mg/dL (4-19); Carbon Dioxide 24.2 mmol/L (21.0-32.0); Chloride 98 mmol/L (98-108); Creatinine, Serum 0.85 mg/dL (0.70-1.20); EST Glomerular Filtration Rate 111 (>60); Estimated Creatinine Clearance 134.17 ml/min (50-250); Glucose 365 mg/dL (70-99); Potassium 4.1 mmol/L (3.3-5.1); Sodium Level 133 mmol/L (133-145)
[2025-03-22] MEDS: Ampicillin/Sulbactam 3 GM in 0.9% Normal Saline (100mL MB+) 100 ML IV (10:19)
[2025-03-22 10:32] VITALS: BP 138/96; PULSE 77; RESP 20; O2SAT 95
--- NOTE | 2025-03-22 10:35 | RAD_ITS ---
PROCEDURE: FOOT MIN 3 VIEWS 03/22/2025 REASON FOR EXAM: PAIN TECHNIQUE: Three views of the right foot COMPARISON: None FINDINGS: No acute fracture or dislocations. Mild scattered degenerative changes. No definite osseous erosions. Mild soft tissue swelling. No radiographic foreign body. RAD/Foot min 3 Views IMPRESSION: No definite osseous erosions. Mild soft tissue swelling. No radiographic fore ign body. Reading Location: [id number]
[2025-03-22 11:42] VITALS: BP 138/96; PULSE 77; RESP 20; TEMP 36.6; O2SAT 95
== END 2025-03-22 12:48 | disposition home or self-care (01) ==
PROVIDERS: Emergency Provider Emergency Medicine; PCP Family Medicine; Visit Provider Emergency Medicine
DX: E11.628 Type 2 diabetes mellitus with other skin complications (principal); L03.031 Cellulitis of right toe; Z79.84 Long term (current) use of oral hypoglycemic drugs
CPT/HCPCS: 10060; 36415; 73630; 80048; 83605; 85025; 85610; 85730; 87040; 87070; 87077; 87186; 87205; 96365; 99283; A4216; J0295